=== PATIENT | male | born 1980 | race Native Hawaiian/Other Pacific Islander ===

== ENCOUNTER 2017-05-05 15:17 | Emergency (ER) | payer OTHER ==
[~2017-05-05] VITALS: Ht 175.3 cm; Wt 81.6 kg
[2017-05-05 16:47] LABS: PLATELET COUNT 257 K/uL (142-355)
[2017-05-05 16:55] LABS: POTASSIUM 2.9 mmol/L (3.6-5.2)
[2017-05-05 18:14] VITALS: TEMP 98.1
[2017-05-05 20:09] VITALS: BP 114/75
== END 2017-05-05 20:12 | disposition home or self-care (01) ==
LOC: ED 15:17
DX: E03.9 Hypothyroidism, unspecified (principal); F12.10 Cannabis abuse, uncomplicated; F15.10 Other stimulant abuse, uncomplicated
CPT/HCPCS: 80053; 80307; 81000; 84443; 85027; 99284; G0479

== ENCOUNTER 2017-05-12 19:35 | Outpatient (CLI) | payer OTHER | END 2017-05-12 19:47 | disposition short-term general hospital (02) | LOC: AMB 19:35 | DX: M25.571 Pain in right ankle and joints of right foot (principal); M79.89 Other specified soft tissue disorders | CPT/HCPCS: A0425; A0427 ==

== ENCOUNTER 2017-05-12 19:50 | Emergency (ER) | payer OTHER ==
[~2017-05-12] VITALS: Ht 172.7 cm; Wt 77.1 kg
[2017-05-12 20:51] LABS: PLATELET COUNT 282 K/uL (142-355)
[2017-05-12 21:02] LABS: POTASSIUM 3.6 mmol/L (3.6-5.2)
[2017-05-12 22:15] VITALS: BP 105/58; TEMP 98.4
== END 2017-05-12 22:15 | disposition home or self-care (01) ==
LOC: ED 19:50
PROVIDERS: Emergency Medicine
DX: E03.9 Hypothyroidism, unspecified (principal); D64.9 Anemia, unspecified
CPT/HCPCS: 80053; 80307; 81000; 84443; 85027; 99283; G0479

== ENCOUNTER 2018-06-21 09:07 | Emergency (ER) | payer OTHER ==
[~2018-06-21] VITALS: Ht 175.3 cm; Wt 81.6 kg
[2018-06-21 09:17] VITALS: TEMP 97.7
[2018-06-21 09:52] LABS: PLATELET COUNT 278 K/uL (142-355)
[2018-06-21 09:59] LABS: POTASSIUM 3.8 mmol/L (3.6-5.2)
[2018-06-21 14:35] VITALS: BP 122/72
== END 2018-06-21 14:35 | disposition home or self-care (01) ==
LOC: ED 09:07
DX: K40.90 Unilateral inguinal hernia, without obstruction or gangrene, not specified as recurrent (principal); K50.00 Crohn's disease of small intestine without complications
CPT/HCPCS: 36415; 80053; 81000; 84443; 85027; 96360; 99284; Q9963

== ENCOUNTER 2018-10-26 10:47 | Outpatient (CLI) | payer OTHER | END 2018-10-26 10:59 | disposition short-term general hospital (02) | LOC: AMB 10:47 | DX: R06.09 Other forms of dyspnea (principal) | CPT/HCPCS: A0425; A0427 ==

== ENCOUNTER 2018-10-26 11:00 | Emergency (ER) | payer OTHER ==
[~2018-10-26] VITALS: Ht 175.3 cm; Wt 81.6 kg
[2018-10-26 11:34] LABS: PLATELET COUNT 266 K/uL (142-355)
[2018-10-26 11:44] LABS: POTASSIUM 3.6 mmol/L (3.6-5.2)
[2018-10-26 13:48] VITALS: BP 117/77; TEMP 89.6
== END 2018-10-26 13:48 | disposition short-term general hospital (02) ==
LOC: ED 11:00
PROVIDERS: Emergency Medicine
PROC: 0T9B70Z Drainage of Bladder with Drainage Device, Via Natural or Artificial Opening (ICD-10-PCS; principal; 2018-10-26)
DX: T43.621A Poisoning by amphetamines, accidental (unintentional), initial encounter (principal); R41.82 Altered mental status, unspecified; T68.XXXA Hypothermia, initial encounter
CPT/HCPCS: 31500; 36415; 36600; 51702; 80053; 80307; 80320; 80329; 81000; 82550; 82553; 82805; 83605; 85027; 93005; 94002; 94003; 96361; 96365; 96366; 96367; 96368; 96375; 99291; J0330; J0461; J1265; J2250; J2310; J3490

== ENCOUNTER 2018-10-26 14:25 | Outpatient (CLI) | payer OTHER | END 2018-10-26 15:52 | disposition short-term general hospital (02) | LOC: AMB 14:25 | DX: T43.621A Poisoning by amphetamines, accidental (unintentional), initial encounter (principal); R41.82 Altered mental status, unspecified; T68.XXXA Hypothermia, initial encounter | CPT/HCPCS: A0425; A0427 ==